=== PATIENT | male | born 1980 | race Caucasian/White ===

== ENCOUNTER 2017-08-24 20:29 | Emergency (ER) | payer OTHER ==
[2017-08-24 20:38] VITALS: BP 121/55; PULSE 73; TEMP 98.2; BMI 37.4
--- NOTE | 2017-08-24 20:52 | PDOC ---
History of Present Illness - General Chief Complaint: Pain Stated Complaint: PAIN/NOSE Time Seen by Provider: 08/24/17 20:50 Past History - Past Medical History Allergies/Adverse Reactions: Allergies Allergy/AdvReac Type Severity Reaction Status Date / Time No Known Allergies Allergy Verified 08/24/17 20:35 Home Medications: Ambulatory Orders Clindamycin [Cleocin -] 300 mg PO TID #21 capsule 08/24/17 COPD: No Other medical history: Pt denies - Suicide/Smoking/Psychosocial Hx Smoking Status: Yes Smoking History: Former smoker Have you smoked in the past 12 months: No Number of Cigarettes Smoked Daily: 10 If you are a former smoker, when did you quit?: 1 month ago Information on smoking cessation initiated: No Hx Alcohol Use: No Drug/Substance Use Hx: No Substance Use Type: None *Physical Exam - Vital Signs Last Vital Signs Temp Pulse Resp BP Pulse Ox 98.2 F 73 18 121/55 98 08/24/17 20:36 08/24/17 20:36 08/24/17 20:36 08/24/17 20:36 08/24/17 20:36 *DC/Admit/Observation/Transfer Diagnosis at time of Disposition: Cellulitis of nose - Discharge Dispostion Disposition: HOME Condition at time of disposition: Stable Admit: No - Referrals Referrals: Darien Hernandez MD [Primary Care Provider] - - Patient Instructions Printed Discharge Instructions: DI for Cellulitis -- Adult Additional Instructions: You have cellulitis see her nose. This is a skin infection. Please take the clindamycin 3 times a day for the next week. He may start taking this medication tomorrow morning as you had her first dose in the emergency department. He may take Motrin 800 mg as needed for pain every 8 hours. Use warm soaks to the nose to help reduce the infection. 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 Return to the emergency department if you have worsening redness, increased pain , fevers, or any changes in your symptoms. - Post Discharge Activity Forms/Work/School Notes: Back to Work
[2017-08-24] MEDS ORDERED: IBUPROFEN 400 MG TABLET (FP) PO ONE ×2 (21:12→21:15)
[2017-08-24] MEDS ORDERED: CLINDAMYCIN HCL 300 MG CAPSULE PO ONE (21:12)
== END 2017-08-24 21:32 | disposition home or self-care (01) ==
LOC: JERFT 20:29
DX: J34.0 Abscess, furuncle and carbuncle of nose (principal)
CPT/HCPCS: 99281-25